=== PATIENT | female | born 1995 | race African-American/Black ===

== ENCOUNTER 2021-07-19 19:21 | Inpatient (IN) | payer BC ==
[~2021-07-19] VITALS: Ht 177.8 cm; Wt 159.2 kg
[2021-07-19 19:28] VITALS: BP 119/74
[2021-07-19 19:51] LABS: ABSOLUTE NEUTROPHILS 3.7 thou/uL (1.4-8.2); EOSINOPHILS 2.3 % (0.0-3.0); HEMATOCRIT 36.7 % (37.0-47.0); HEMOGLOBIN 11.8 gm/dL (12.0-15.0); LYMPHOCYTES 40.1 % (24.0-44.0); MCH 23.4 pg (26.0-34.0); MONOCYTES 9.9 % (1.0-8.0); PLATELET COUNT 385 thou/uL (150-400); POLYS 46.7 % (36.0-66.0); RBC 5.03 mil/uL (4.20-5.00); RDW 14.8 % (10.5-14.5)
[2021-07-19 20:00] LABS: CALCIUM 8.8 mg/dL (8.5-10.1); CREATININE 1.1 mg/dL (0.6-1.0)
[2021-07-19 20:10] LABS: ALBUMIN 3.5 g/dL (3.4-5.0); TOTAL BILIRUBIN 0.3 mg/dL (0.2-1.0); TOTAL PROTEIN 7.7 g/dL (6.4-8.2)
[2021-07-19] MEDS ORDERED: ACCUNEB SO1.25 MG/1 (22:33)
[2021-07-19] MEDS ORDERED: TIVICAY50 MG PO (22:39)
[2021-07-19] MEDS ORDERED: TRUVADA 200 MG1 EACH PO (22:39)
[2021-07-19 23:21] VITALS: BP 105/72
[2021-07-19 23:40] VITALS: BP 111/57
[2021-07-20 00:56] LABS: ANION GAP 10 mmol/L (7-16); BUN 9 mg/dL (7-18); CALCIUM 8.6 mg/dL (8.5-10.1); CHLORIDE 104 mmol/L (98-107); CHOLESTEROL 125 mg/dL (<200); CO2 25 mmol/L (21-32); CREATININE 0.9 mg/dL (0.6-1.0); GLUCOSE 96 mg/dL (74-106); HDL CHOLESTEROL 55 mg/dL (>40); LDL CHOLESTEROL 63 mg/dL (<100); POTASSIUM 3.7 mmol/L (3.5-5.1); SODIUM 139 mmol/L (136-145); TC:HDL 2.3 Ratio (Not establshd); TRIGLYCERIDE 37 mg/dL (<150); VLDL 7 mg/dL (<40)
[2021-07-20 00:57] LABS: APTT 33.3 Seconds (24.5-32.8); INR 0.99; PROTIME 10.8 Seconds (10.5-12.1)
[2021-07-20 01:01] LABS: SERUM ASSESSMENT Clear
--- NOTE | 2021-07-20 03:10 | NUR ---
ADMITTED THIS PATIENT FROM THE EMERGENCY AT [facility].PATIENT IS ALERT AND ORIENTED X4.ON ROOM AIR BREATHING SPONTANEOUSLY.NOT IN PAIN OR DISTRESS.NIH SCORING DONE AND RECORDED.ALL NEEDS ATTENDED.
[2021-07-20 05:13] VITALS: BP 117/63
[2021-07-20 07:36] VITALS: BP 96/60
[2021-07-20 11:33] VITALS: BP 95/51
--- NOTE | 2021-07-20 13:32 | EKG ---
[place] [address] [facility] [place] [address] ELECTROCARDIOGRAM REPORT Name: ANDREEA WHARTON Room #: 206-P ADM IN M.R.#: [id number] Admission: 07/19/21 Attend Phys: Venkata Goetz MD Discharge: Date of : [birth year] Report #: [id number] [facility] ED Test Date: 2021-07-19 Test Time: 20:07:55 Pat Name: ANDREEA WHARTON Department: Room: 206 Gender: F Supervisor Cytology: clement : 1995 Requested By: Dany Alicia Order Number: [id number] MD: Shailesh Velasquez Measurements Intervals [place] Rate: 74 P: 8 SD: 159 QRS: 17 QRSD: 80 T: -2 QT: 379 QTc: 421 Interpretive Statements Sinus rhythm Minimal ST depression, inferior leads No previous ECG available for comparison Electronically Signed On 07-20-2021 13:32:17 CDT by Shailesh Velasquez [email or web address] <ELECTRONICALLY SIGNED> By: Shailesh Velasquez MD, [facility] 07/20/21 1332 06 06 Shailesh Velasquez MD, FACC /EPI
[2021-07-20 15:43] VITALS: BP 119/79
--- NOTE | 2021-07-20 18:32 | NUR ---
ASSESSMENT CHARTED. PT ALERT AND ORIENTED. VSS. DENIED HAVING PAIN OR DISCOMFORT. SEEN BY DR. SUNSHINE AND DR. ROWAN. NEW ORDERS NOTED. NO CONCERNS AT THIS TIME.
[2021-07-20 19:15] VITALS: BP 125/78
[2021-07-21 04:05] LABS: GLYCOHEMOGLOBIN (HGB A1C) 5.8 % (4.8-5.6)
[2021-07-21 04:08] VITALS: BP 108/68
[2021-07-21] MEDS ORDERED: FLAGYL500 M1 PO (08:33)
[2021-07-21 09:05] VITALS: BP 119/73
--- NOTE | 2021-07-21 10:35 | NUR ---
VARIANCE NOTE: ORDERS RECEIVED FOR O.T. EVAL AND TREAT, W/ NOTE OF R/O CVA. PT AT THIS TIME HAVING ONLY SLIGHT RESIDUAL SYMPTOMS OF L SIDED FACE WEAKNESS, BUT OTHERWISE NO R/L STRENGTH DIFFERENCES IN EXTREMITIES, NO SENSORY LOSS/ DIFFERENCES, AND HAS BEEN UP AD RITU. OBSERVED PT PICKING UP AND MOVING CHAIR AROUND BED IN ROOM AT [facility]. PT HAS NO CONCERNS FOR D/C HOME, PLANS TO STAY W/ PARENTS FOR A BIT OF TIME FOLLOWING HOSPITAL STAY, AND PLANS TO RETURN TO WORK TOMORROW. NO ACUTE O.T. INDICATED AT THIS TIME. PT IN AGREEMENT TO HAVE O.T. RECONSULTED IF ANY NEW SYMPTOMS ARISE. O.T. TO SIGN OFF AT THIS TIME.
[2021-07-21] MEDS ORDERED: ACYCLOVIR 200200 MG PO (10:40)
[2021-07-21] MEDS ORDERED: MEDROL4 M1 PO (10:40)
[2021-07-21 12:29] VITALS: BP 110/66
[2021-07-21 15:37] VITALS: BP 110/66
--- NOTE | 2021-07-21 16:38 | NUR ---
ASSESSMENT CHARTED - MES PER MAR - GIVEN ATIVAN 1 MG PRIOR TO MRI. SOL DIET AND FLUIDS - SEEN BY [facility]ER[facility]. PT AND OCC THERAPY SAW PT THIS SHIFT. PT UP AD RITU IN ROOM - NO CO'S OF PAIN OR NAUSEA. PT HOME THIS AFTERNOON - INSTRUCTION RE HOME MEDS/ CARE AND FOLLOW UP GIVEN TO PATIENT. STATED UNDERSTANDING OF INSTRUCTION GIVEN. LEFT UNIT ACCOMP BY FATHER - HOME VIA PVT VEHICLE - NO CO'S AT TIME OF D/C.
== END 2021-07-21 16:15 | disposition home or self-care (01) | DRG 74 ==
LOC: ER 19:21 → EROBS 22:40 → 2N 22:40
PROVIDERS: Emergency Medicine; Nurse Practitioner Family; ADMIT Hospitalist; ATTEND Hospitalist
DX: G51.0 Bell's palsy (principal); Z68.43 Body mass index [BMI] 50.0-59.9, adult; E66.9 Obesity, unspecified; J45.909 Unspecified asthma, uncomplicated; Z20.822 Contact with and (suspected) exposure to COVID-19
CPT/HCPCS: 10081